=== PATIENT | female | born 1990 | race Caucasian/White ===

== ENCOUNTER 2024-01-12 15:17 | Outpatient (CLI) | payer BC | END 2024-01-12 15:18 | disposition home or self-care (01) | LOC: CSHULT 15:17 | PROVIDERS: ATTEND Family Medicine | DX: N96 Recurrent pregnancy loss (principal) | CPT/HCPCS: 76815 ==

== ENCOUNTER 2024-01-14 05:30 | Inpatient (IN) | payer BC ==
[2024-01-14 06:54] VITALS: BMI 24.5
[2024-01-14] MEDS ORDERED: Ondansetron PF 4 MG/2 ML Vial IVP PRN (07:08)
[2024-01-14] MEDS ORDERED: hydrALAZINE 20 MG/ML VIAL SLOW IVP PRN (07:08)
[2024-01-14] MEDS ORDERED: Promethazine HCl 25 MG/ML VIAL IM PRN ×2 (07:08→08:54)
[2024-01-14 07:28] LABS: Hematocrit 39.1 % (34.9-44.5); Hemoglobin 13.5 g/dL (12.0-15.5); Mean Corpuscular HGB CONC 34.5 g/dL (32.0-36.0); Mean Corpuscular Hemoglobin 29.4 pg (27.0-33.0); Mean Corpuscular Volume 85.2 fL (81.6-98.3); Mean Platelet Volume 10.6 fL (7.4-10.4); Platelet Count 174 10x3/uL (150-450); RBC Distribution Width 12.7 % (11.5-14.5); Red Blood Cell (RBC) Count 4.59 10x6/uL (3.90-5.03); White Blood Cell (WBC) Count 6.9 10x3/uL (3.5-10.5)
[2024-01-14] MEDS ORDERED: Misoprostol 100 MCG TAB VAG SCH ×2 (07:30→11:36)
[2024-01-14] MEDS: fentaNYL/Ropivacaine Epidural 100 ML ONE (08:24)
[2024-01-14] MEDS ORDERED: Acetaminophen 325 MG TAB PO PRN (08:54)
[2024-01-14] MEDS ORDERED: Naloxone HCl 0.4 mg/ml Vial IVP PRN ×2 (08:54)
[2024-01-14] MEDS ORDERED: Lactated Ringer's 500 ML IV PRN (08:54)
[2024-01-14] MEDS ORDERED: ePHEDrine Sulfate 50 MG/10 ML VIAL SLOW IVP PRN (08:54)
[2024-01-14] MEDS ORDERED: diphenhydrAMINE 50 MG/ML VIAL IVP PRN (08:54)
[2024-01-14] MEDS ORDERED: Moisturizing Cream (Eucerin) 113 GM JAR TOP PRN (08:54)
[2024-01-14] MEDS ORDERED: Communication Order-Pharmacy FS SCH (09:00)
[2024-01-14] MEDS ORDERED: fentaNYL 2 mcg/Ropivacaine 0.2% Epidural 100 ML CADD EPIDURAL SCH (09:00)
[2024-01-14] MEDS: Misoprostol 200 MCG TAB ONE (10:20)
[2024-01-14 11:55] LABS: Syphilis Antibody Nonreactive (Nonreactive); Syphilis Antibody Index 0.03 S/CO (<1.00 Non-Reactive)
[2024-01-14] MEDS ORDERED: Misoprostol 200 MCG TAB ONE (15:37)
[2024-01-14] MEDS: Misoprostol 200 MCG TAB VAG SCH (15:42)
[2024-01-14] MEDS: Carboprost 250 MCG/ML AMP ONE (15:42)
[2024-01-14] MEDS ORDERED: Misoprostol 100 MCG TAB PR SCH (16:00)
[2024-01-14] MEDS: Carboprost 250 MCG/ML AMP IM SCH (16:51)
[2024-01-14] MEDS: Diphenoxylate HCl/Atropine Tablet PO SCH (18:23)
[2024-01-14] MEDS: Ondansetron PF 4 MG/2 ML Vial IVP PRN (18:23)
[2024-01-15 12:07] LABS: Reference Lab Name LABCORP
[2024-01-17 07:27] LABS: Toxoplasma IgG AB Less than 3.0 IU/mL (0.0-7.1)
[2024-01-17 13:15] LABS: Parvovirus B19 IgG ABS 3.7 index (0.0-0.8); Parvovirus B19 IgM ABS 0.1 index (0.0-0.8)
[2024-01-19 06:17] LABS: Toxoplasma IgM AB Less than 3.0 AU/mL (0.0-7.9)
== END 2024-01-14 20:25 | disposition home or self-care (01) | DRG 807 ==
LOC: CSHLD 06:02
PROVIDERS: ADMIT Family Medicine; ATTEND Family Medicine
PROC: 10E0XZZ Delivery of Products of Conception, External Approach (ICD-10-PCS; principal; 2024-01-14)
DX: O36.4XX0 Maternal care for intrauterine death, not applicable or unspecified (principal); Z37.1 Single stillbirth; Z3A.12 12 weeks gestation of pregnancy
CPT/HCPCS: 51702; 85027; 86644; 86695; 86696; 86747; 86762; 86777; 86778; 86780; 86850; 86900; 86901; 88305; 99285; J2405; J3490